=== PATIENT | female | born 1975 | race Caucasian/White ===

== ENCOUNTER 2017-02-21 15:30 | Emergency (ER) | payer OTHER ==
[~2017-02-21] VITALS: Wt 81.6 kg
[~2017-02-21 15:30] MED LIST: ADDERALL30 MG PO; EFFEXOR75 MG PO; MIRALAX17 GM/PACK PO; SUBOXONE1 FI1 SL
[2017-02-21] MEDS ORDERED: NEURONTIN800 MG PO (15:42)
[2017-02-21] MEDS ORDERED: ANAPROX DS550 MG PO (16:42)
== END 2017-02-21 16:49 | disposition home or self-care (01) ==
LOC: ED 15:30
DX: S90.31XA Contusion of right foot, initial encounter (principal); F17.200 Nicotine dependence, unspecified, uncomplicated; Z88.0 Allergy status to penicillin; Z88.6 Allergy status to analgesic agent; Z88.1 Allergy status to other antibiotic agents; W22.8XXA Striking against or struck by other objects, initial encounter; Y93.01 Activity, walking, marching and hiking; Y92.832 Beach as the place of occurrence of the external cause; Y99.9 Unspecified external cause status

== ENCOUNTER 2018-02-03 14:53 | Emergency (ER) | payer OTHER ==
[~2018-02-03] VITALS: Ht 170.1 cm; Wt 77.1 kg
[~2018-02-03 14:53] MED LIST changes: +ANAPROX DS550 MG PO; +NEURONTIN800 MG PO
== END 2018-02-03 16:11 | disposition left against medical advice (07) ==
LOC: ED 14:53
DX: K59.00 Constipation, unspecified (principal); Z88.0 Allergy status to penicillin; Z88.1 Allergy status to other antibiotic agents; Z88.6 Allergy status to analgesic agent

== ENCOUNTER 2019-05-06 20:17 | Emergency (ER) | payer OTHER ==
[~2019-05-06] VITALS: Ht 170.1 cm; Wt 77.1 kg
== END 2019-05-06 21:02 | disposition home or self-care (01) ==
LOC: ED 20:17
DX: L72.9 Follicular cyst of the skin and subcutaneous tissue, unspecified (principal); F17.200 Nicotine dependence, unspecified, uncomplicated; Z88.0 Allergy status to penicillin; Z88.1 Allergy status to other antibiotic agents; Z88.6 Allergy status to analgesic agent

== ENCOUNTER → 2019-06-07 | Outpatient (CLI) | payer OTHER | END | disposition home or self-care (01) | LOC: RAD 11:08 | DX: M54.12 Radiculopathy, cervical region (principal) ==

== ENCOUNTER 2021-07-01 07:19 | Emergency (ER) | payer OTHER ==
[~2021-07-01] VITALS: Ht 170.1 cm; Wt 80.7 kg
[2021-07-01] MEDS ORDERED: Motrin,Rufen800 MG PO (08:28)
[2021-07-01] MEDS ORDERED: VIBRA-TAB100 MG PO (08:28)
== END 2021-07-01 09:02 | disposition home or self-care (01) ==
LOC: ED 07:19
DX: L03.012 Cellulitis of left finger (principal); Z88.0 Allergy status to penicillin; Z88.1 Allergy status to other antibiotic agents; Z88.6 Allergy status to analgesic agent

== ENCOUNTER 2023-04-16 22:07 | Emergency (ER) | payer OTHER ==
[~2023-04-16] VITALS: Ht 167.6 cm; Wt 86.2 kg
[~2023-04-16 22:07] MED LIST changes: +Motrin,Rufen800 MG PO; +VIBRA-TAB100 MG PO
== END 2023-04-16 23:05 | disposition home or self-care (01) ==
LOC: ED 22:07
DX: M79.605 Pain in left leg (principal); M79.89 Other specified soft tissue disorders; Z88.0 Allergy status to penicillin; Z88.1 Allergy status to other antibiotic agents; Z88.8 Allergy status to other drugs, medicaments and biological substances; Z79.899 Other long term (current) drug therapy

== ENCOUNTER → 2023-04-17 | Outpatient (CLI) | payer BC | END | disposition home or self-care (01) | LOC: US 11:10 | PROVIDERS: ATTEND Internal Medicine | DX: M79.605 Pain in left leg (principal); R22.32 Localized swelling, mass and lump, left upper limb ==

== ENCOUNTER 2023-05-20 18:14 | Emergency (ER) | payer BC ==
[~2023-05-20] VITALS: Wt 81.6 kg
[2023-05-20] MEDS ORDERED: ADDERALL XR25 MG PO (19:22)
== END 2023-05-20 19:44 | disposition home or self-care (01) ==
LOC: ED 18:14
DX: M25.562 Pain in left knee (principal); F90.9 Attention-deficit hyperactivity disorder, unspecified type; Z88.0 Allergy status to penicillin; Z88.1 Allergy status to other antibiotic agents; Z88.8 Allergy status to other drugs, medicaments and biological substances; Z98.890 Other specified postprocedural states